=== PATIENT | female | born 1975 | race Caucasian/White ===

== ENCOUNTER 2023-01-02 12:33 | Emergency (ER) | payer BC ==
[2023-01-02 13:07] LABS: BASOPHILS ABSOLUTE AUTO 0.1 x10^3/uL (0.0-0.2); BASOPHILS PERCENT AUTO 1.2 % (0.2-1.2); EOSINOPHILS ABSOLUTE AUTO 0.3 x10^3/uL (0.0-0.5); EOSINOPHILS PERCENT AUTO 3.8 % (0.0-4.0); HEMOGLOBIN 13.8 g/dL (12.0-16.0); IMMATURE GRAN ABSOLUTE AUTO 0.01 x10^3/uL (0.00-0.07); LYMPHOCYTES ABSOLUTE AUTO 1.6 x10^3/uL (1.0-4.8); LYMPHOCYTES PERCENT AUTO 23.6 % (25.0-50.0); MEAN CORPUSCULAR HEMOGLOBIN 31.7 pg (26.0-32.0); MEAN CORPUSCULAR HGB CONC 35.4 g/dL (32.0-36.0); MEAN CORPUSCULAR VOLUME 89.4 fL (78.0-93.0); MONOCYTES ABSOLUTE AUTO 0.4 x10^3/uL (0.0-0.8); MONOCYTES PERCENT AUTO 6.3 % (2.0-11.0); NEUTROPHILS ABSOLUTE AUTO 4.5 x10^3/uL (1.8-7.7); PLATELET COUNT,PLT 246 x10^3/uL (130-400); RED BLOOD CELL COUNT 4.36 x10^6/uL (4.00-5.50); WHITE BLOOD CELL COUNT,WBC 6.9 x10^3/uL (4.0-10.0)
[2023-01-02 13:33] LABS: A/G RATIO 1.45; ALANINE AMINOTRANSFERASE,ALT 20 U/L (14-59); ALBUMIN 4.2 g/dL (3.4-5.0); ALKALINE PHOSPHATASE 56 U/L (46-116); ASPARTATE AMNIOTRANSFERASE,AST 16 U/L (15-37); BILIRUBIN TOTAL 1.2 mg/dL (0.2-1.0); BLOOD UREA NITROGEN,BUN 18 mg/dL (7-18); C-REACTIVE PROTEIN 0.11 mg/dL (<=0.30); CALCIUM 9.4 mg/dL (8.5-10.1); CARBON DIOXIDE,CO2 29 mmol/L (21-32); CHLORIDE,CL 102 mmol/L (98-107); CREATINE KINASE,CK 77 U/L (26-192); CREATININE 0.9 mg/dL (0.55-1.02); GLUCOSE RANDOM 113 mg/dL (70-99); POTASSIUM,K 4.3 mmol/L (3.5-5.1); PROTEIN TOTAL,TP 7.1 g/dL (6.4-8.2); SODIUM,NA 139 mmol/L (136-145)
[2023-01-02 13:34] LABS: ANION GAP 12.3 mmol/L (5-15); ESTIMATED GFR 79 mL/min (>=60)
[2023-01-02 14:23] VITALS: BP 121/67; PULSE 60
== END 2023-01-02 13:57 | disposition home or self-care (01) ==
LOC: VM.ED 12:33
DX: J20.9 Acute bronchitis, unspecified (principal)
CPT/HCPCS: 36415; 71046; 80053; 82550; 84484; 85025; 86140; 93005; 93010; 99284; 99285